=== PATIENT | male | born 1990 | race African-American/Black ===

== ENCOUNTER 2019-10-27 15:39 | Emergency (ER) | payer MEDICAID ==
[~2019-10-27] VITALS: Ht 175.3 cm; Wt 59.0 kg
--- NOTE | 2019-10-27 15:40 | NUR ---
BIBA TAKEN TO BED 7
[2019-10-27 15:42] VITALS: BP 138/77
--- NOTE | 2019-10-27 15:59 | NUR ---
C/O HEADACHE SINCE 3AM. NO MED HX AND NO RX .PT AOX 4, AFIBRILE , AMBULATORY WITH STEADY GAIT, DENIES N/V, DIZZINESS. SCE, CBS BLF, FLAT SOFT NABS. PMHX UNREMARKABLE.
--- NOTE | 2019-10-27 16:00 | NUR ---
PT COMFORTABLE IN BED , GAVE FOOD TO EAT.SIDE RAILS UP X1 AND LOCK.
[2019-10-27] MEDS ORDERED: KETOROLAC 30 MG/ML VIAL IM ONE (16:30)
[2019-10-27] MEDS ORDERED: HYDROcodone/APAP 5/325 MG 1 TAB TAB PO ONE (16:30)
--- NOTE | 2019-10-27 16:42 | NUR ---
NORCO AND TORADOL ADMINISTERED. PT STATES HE WONT BE DRIVING HOME
[2019-10-27 17:20] LABS: BARBITURATE, URINE NEGATIVE ng/ml (NEG <=200); BENZODIAZEPINE, URINE NEGATIVE ng/mL (NEG <=200); CANNABINOID, URINE POSITIVE ng/mL (NEG <=50); COCAINE, URINE NEGATIVE ng/mL (NEG <=300); OPIATE, URINE NEGATIVE ng/mL (NEG <=2000); PHENCYCLIDINE SCREEN,URINE NEGATIVE ng/mL (NEG <=25)
[2019-10-27 17:34] VITALS: BP 128/78
--- NOTE | 2019-10-27 17:35 | NUR ---
Patient discharged with v/s stable. Written and verbal after care instructions given and explained regarding headache. Patient alert, oriented and verbalized understanding of instructions. Ambulatory with steady gait. All questions addressed prior to discharge. ID band removed. Patient advised to follow up with PMD. Rx of naprosyn given. Patient educated on indication of medication including possible reaction and side effects. Opportunity to ask questions provided and answered.
== END 2019-10-27 17:35 | disposition home or self-care (01) ==
LOC: MED 15:39
DX: R51 Headache (principal); R68.84 Jaw pain
CPT/HCPCS: 80305; 96372; 99283; J1885